=== PATIENT | female | born 2000 | race Caucasian/White ===

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

== ENCOUNTER 2024-04-13 12:24 | Emergency (ER) | payer BC ==
[~2024-04-13] VITALS: Ht 167.6 cm; Wt 60.0 kg
[2024-04-13 12:33] VITALS: BP 120/81; PULSE 105; RESP 18; TEMP 98.5; O2SAT 99
[2024-04-13] MEDS: IBUPROFEN 600MG TABLET PO ONE (13:24)
[2024-04-13] MEDS ORDERED: AM250 PO (16:44)
== END 2024-04-13 13:39 | disposition home or self-care (01) ==
LOC: ER 12:24
DX: J02.0 Streptococcal pharyngitis (principal); Z20.822 Contact with and (suspected) exposure to COVID-19
CPT/HCPCS: 87426; 87430; 99283

== ENCOUNTER → 2024-05-24 | Outpatient (CLI) | payer BC ==
[~2024-05-24] MED LIST: AM250 PO
[2024-05-24 12:43] LABS: BASOPHILS % 0.5 % (0.0-2.0); EOSINOPHILS % 1.4 % (0.0-5.0); HEMATOCRIT. 44.7 % (36.0-48.0); HEMOGLOBIN. 14.4 g/dL (12.0-16.0); LYMPHOCYTES % 17.3 % (20.0-50.0); MEAN CORPUSCULAR HEMOGLOBIN 26.6 pg (28.0-32.0); MEAN CORPUSCULAR HGB CONC 32.1 g/dL (31.0-37.0); MEAN CORPUSCULAR VOLUME 82.8 fL (81.0-99.0); MEAN PLATELET VOLUME 8.8 fl (7.4-10.4); MONOCYTES % 6.5 % (2.0-8.0); NEUTROPHILS % 74.3 % (40.0-76.0); PLATELET 320 x1000/uL (130-400); RED CELL DISTRIBUTION WIDTH 14.6 % (11.6-14.6); WHITE BLOOD COUNT 8.5 x1000/uL (4.5-11.0)
[2024-05-24 12:52] LABS: CLARITY URINE CLEAR (CLEAR); COLOR URINE YELLOW (YELLOW); GLUCOSE URINE NEGATIVE (NEGATIVE); KETONES URINE NEGATIVE (NEGATIVE); LEUKOCYTE ESTERASE URINE NEGATIVE (NEGATIVE); NITRITE URINE POSITIVE (NEGATIVE); OCCULT BLOOD URINE NEGATIVE (NEGATIVE); PROTEIN URINE NEGATIVE (NEGATIVE); SPECIFIC GRAVITY URINE 1.004 (1.005-1.030); UROBILINOGEN URINE 0.2 E.U./dL (0.2-1.0)
[2024-05-24 12:53] LABS: CHLORIDE 104 mEq/L (98-107); POTASSIUM 4.3 mEq/L (3.5-5.1); SODIUM 135 mEq/L (136-145)
[2024-05-24 12:54] LABS: CALCIUM 9.7 mg/dL (8.7-10.4); CARBON DIOXIDE 24 mEq/L (21-32)
[2024-05-24 12:59] LABS: CREATININE 0.8 mg/dL (0.6-1.0); GLUCOSE 90 mg/dL (70-105); TRIGLYCERIDE 110 mg/dL (0-150); UREA NITROGEN BLOOD 8 mg/dL (9-23)
[2024-05-24 13:00] LABS: LDL CHOLESTEROL 121 mg/dL (5-100)
[2024-05-24 13:01] LABS: ALANINE AMINOTRANSFERASE 15 IU/L (10-49); ALBUMIN 4.9 g/dL (3.2-4.8); ASPARTATE AMINOTRANSFERASE 22 IU/L (<34); BILIRUBIN TOTAL 0.8 mg/dL (0.1-1.0); CHOLESTEROL 203 mg/dL (<200); HDL CHOLESTEROL 73 mg/dL (>65); PROTEIN TOTAL 7.9 g/dL (6.0-8.3)
[2024-05-24 13:03] LABS: T4 FREE 1.44 ng/dL (0.89-1.76); THYROID STIMULATING HORMONE 0.43 uIU/mL (0.55-4.78)
[2024-05-24 13:15] LABS: BACTERIA URINE 2+; RBC URINE 0-2 /hpf (0-2); SQUAMOUS EPITHELIAL CELL URINE 2+ /lpf (RARE/1+); WBC URINE 0-2 /hpf (0-2); YEAST URINE NONE SEEN
[2024-05-26 08:11] LABS: *T3 UPTAKE 39 % (24-39); THYROID PEROXIDASE ANTIBODY < 9 IU/mL (0-34); VITAMIN D 25-OH 33.3 ng/mL (30.0-100.0)
== END | disposition home or self-care (01) ==
LOC: LAB 12:06
PROVIDERS: ATTEND Internal Medicine Endocrinology, Diabetes & Metabolism
DX: R53.83 Other fatigue (principal); E04.9 Nontoxic goiter, unspecified
CPT/HCPCS: 36415; 80053; 80061; 81003; 82306; 83036; 84439; 84443; 84479; 85025; 86376

== ENCOUNTER → 2024-12-19 | Day surgery (SDC) | payer BC ==
[~2024-12-19] VITALS: Ht 160 cm; Wt 68.0 kg
[~2024-12-19] MED LIST changes: +ACETAMINOPHEN 325MG TABLET PO PRN; -AM250 PO; +ASCO100T12 PO; +BACITRACIN 14GM TUBE TOP ONE; +BUPIVACAINE HCL/PF 0.5% (5MG/ML) 10ML ONE; +DEXAMETHASONE 4MG/ML 1ML VIAL IV PRN; +DEXT 5%/0.45% NACL KCL 20MEQ/L 1,000 ML IV SCH; +FENTANYL CITRATE/PF 50MCG/ML 5ML VIAL ONE; +GLYCOPYRROLATE 0.2 MG/ML 2ML VIAL IV PRN; +HYDRALAZINE 20MG/ML VIAL IV PRN; +HYDROCODONE/ACETAMINOPHEN 5/325MG TABLET PO PRN; +HYDROMORPHONE HCL/PF 1MG/ML INJ IV PRN; +LABETALOL 5MG/ML 4ML INJ IV PRN; +LIDOCAINE HCL/EPINEPHRINE 1%-EPI 1:100,000 20ML VIAL ONE; +MIDAZOLAM HCL 2 MG/2 ML VIAL ONE; +MORPHINE SULFATE 2 MG/ML INJ (NOT FOR IM USE) IV PRN; +MORPHINE SULFATE 4 MG/ML INJ (FOR IV/IM USE) IV PRN; +NALOXONE HCL 0.4MG/ML VIAL IV PRN; +ONDANSETRON HCL 4MG/2ML INJ IV PRN; +OXYC-100 MT; +POLYMYXIN B SULFATE 500000 UNITS/VIAL ONE; +PROPOFOL 200MG/20ML VIAL IV ONE; +SODIUM CHLORIDE 0.9% 3ML FLUSH IVF SCH; +VANCOMYCIN HCL 1GM VIAL ONE; +VITAMIN D PO; +ZINC100T8 PO
[2024-12-19 08:45] LABS: BASOPHILS % 0.4 % (0.0-2.0); EOSINOPHILS % 1.7 % (0.0-5.0); HEMOGLOBIN. 13.7 g/dL (12.0-16.0); LYMPHOCYTES % 14.1 % (20.0-50.0); MEAN CORPUSCULAR HEMOGLOBIN 26.8 pg (28.0-32.0); MEAN CORPUSCULAR HGB CONC 32.6 g/dL (31.0-37.0); MONOCYTES % 5.7 % (2.0-8.0); NEUTROPHILS % 78.1 % (40.0-76.0); PLATELET 282 x1000/uL (130-400); RED BLOOD CELL COUNT 5.13 mill/uL (4.2-5.4); RED CELL DISTRIBUTION WIDTH 13.8 % (11.6-14.6); WHITE BLOOD COUNT 10.5 x1000/uL (4.5-11.0)
[2024-12-19 08:55] LABS: CHLORIDE 106 mEq/L (98-107); POTASSIUM 3.5 mEq/L (3.5-5.1); SODIUM 140 mEq/L (136-145)
[2024-12-19 08:56] LABS: CARBON DIOXIDE 24 mEq/L (21-32)
[2024-12-19 09:01] LABS: CREATININE 0.8 mg/dL (0.6-1.0); GLUCOSE 115 mg/dL (70-105); UREA NITROGEN BLOOD 9 mg/dL (9-23)
[2024-12-19 09:12] LABS: UCG SCREEN NEGATIVE
[2024-12-19] MEDS: LACTATED RINGERS 1,000 ML IV SCH (09:22)
[2024-12-19 09:26] LABS: PROTHROMBIN TIME 10.8 sec (9.6-11.0)
[2024-12-19 11:58] VITALS: BP 121/84; PULSE 86; RESP 20
[2024-12-19] MEDS: HYDROCODONE/ACETAMINOPHEN 5/325MG TABLET PO PRN (11:58)
== END | disposition home or self-care (01) ==
LOC: OR 08:15
DX: S92.352A Displaced fracture of fifth metatarsal bone, left foot, initial encounter for closed fracture (principal); Z79.899 Other long term (current) drug therapy; Z98.890 Other specified postprocedural states; W01.0XXA Fall on same level from slipping, tripping and stumbling without subsequent striking against object, initial encounter
CPT/HCPCS: 28485; 80048; 81025; 85025; 85610; 85730; 36415; 71045; 73660; 93005; J3010; J0665; J2004; J2250; J3490; J2704; J3370; 76000; A4606; C1713; C1768

== ENCOUNTER → 2025-01-07 | Outpatient (CLI) | payer BC ==
[~2025-01-07] MED LIST changes: -ACETAMINOPHEN 325MG TABLET PO PRN; -BACITRACIN 14GM TUBE TOP ONE; -BUPIVACAINE HCL/PF 0.5% (5MG/ML) 10ML ONE; -DEXAMETHASONE 4MG/ML 1ML VIAL IV PRN; -DEXT 5%/0.45% NACL KCL 20MEQ/L 1,000 ML IV SCH; -FENTANYL CITRATE/PF 50MCG/ML 5ML VIAL ONE; -GLYCOPYRROLATE 0.2 MG/ML 2ML VIAL IV PRN; -HYDRALAZINE 20MG/ML VIAL IV PRN; -HYDROCODONE/ACETAMINOPHEN 5/325MG TABLET PO PRN; -HYDROMORPHONE HCL/PF 1MG/ML INJ IV PRN; -LABETALOL 5MG/ML 4ML INJ IV PRN; -LIDOCAINE HCL/EPINEPHRINE 1%-EPI 1:100,000 20ML VIAL ONE; -MIDAZOLAM HCL 2 MG/2 ML VIAL ONE; -MORPHINE SULFATE 2 MG/ML INJ (NOT FOR IM USE) IV PRN; -MORPHINE SULFATE 4 MG/ML INJ (FOR IV/IM USE) IV PRN; -NALOXONE HCL 0.4MG/ML VIAL IV PRN; -ONDANSETRON HCL 4MG/2ML INJ IV PRN; -POLYMYXIN B SULFATE 500000 UNITS/VIAL ONE; -PROPOFOL 200MG/20ML VIAL IV ONE; -SODIUM CHLORIDE 0.9% 3ML FLUSH IVF SCH; -VANCOMYCIN HCL 1GM VIAL ONE
== END | disposition home or self-care (01) ==
LOC: RAD 12:45
DX: S92.352D Displaced fracture of fifth metatarsal bone, left foot, subsequent encounter for fracture with routine healing (principal); X58.XXXD Exposure to other specified factors, subsequent encounter
CPT/HCPCS: 73630

== ENCOUNTER → 2025-04-01 | Outpatient (CLI) | payer BC | END | disposition home or self-care (01) | LOC: RAD 13:17 | DX: S92.352D Displaced fracture of fifth metatarsal bone, left foot, subsequent encounter for fracture with routine healing (principal); X58.XXXD Exposure to other specified factors, subsequent encounter | CPT/HCPCS: 73630 ==